=== PATIENT | male | born 1980 | race Native Hawaiian/Other Pacific Islander ===

== ENCOUNTER 2021-01-20 19:07 | Emergency (ER) | payer SELFPAY ==
[2021-01-20] MEDS ORDERED: PROPARACAINE 0.5% OPHTH DROPS 15 ML EACHEYE STA (19:27)
[2021-01-20] MEDS ORDERED: metroNIDAZOLE 250 MG TABLET PO STA (19:35)
[2021-01-20] MEDS ORDERED: DOXYCYCLINE 100 MG TABLET PO STA (19:35)
[2021-01-20] MEDS ORDERED: OFLOXACIN 0.3% OPHTH DROPS LEFTEYE STA (19:35)
--- NOTE | 2021-01-20 19:37 | ED Physician Documentation ---
PD HPI HEENT - Stated complaint Stated Complaint: LT EYE INJ - Chief complaint Chief Complaint: Laceration - History obtained from History obtained from: Patient - Additional information Additional information: 2 hrs Ago he was playing with his dog and she bit him on the face. He has a laceration of the lower lid of the left eye and also a puncture wound. Both he and the dog are up-to-date on immunizations. He is penicillin allergic with reaction of anaphylaxis. Review of Systems Constitutional: denies: Fever, Chills Eyes: reports: Loss of vision, Discharge Ears: denies: Loss of hearing, Ear pain Nose: denies: Rhinorrhea / runny nose, Congestion PD PAST MEDICAL HISTORY - Present Medications Home Medications: Ambulatory Orders Medication Instructions Recorded Confirmed Albuterol Sulf [Ventolin Hfa 1 - 2 puffs INH Q4HR PRN #1 inhaler 01/20/21 Inhaler] Albuterol Sulfate [Proair Hfa 2 puffs IH Q4HR PRN 01/20/21 01/20/21 Inhaler] Ciprofloxacin HCl [Cipro] 500 mg PO BID #10 tablet 01/20/21 Erythromycin Base [Erythromycin 1 appful OP 5XD 7 Days #1 gm 01/20/21 Ophthalmic Ointment] Montelukast [Singulair] 10 mg PO DAILY 01/20/21 01/20/21 Montelukast [Singulair] 10 mg PO QPM #30 tablet 01/20/21 metroNIDAZOLE [Flagyl] 500 mg PO BID #10 tablet 01/20/21 - Allergies Allergies/Adverse Reactions: Allergies Allergy/AdvReac Type Severity Reaction Status Date / Time Penicillins Allergy Anaphylaxis Verified 01/20/21 19:25 PD ED PE NORMAL - Vitals Vital signs reviewed: Yes - General General: Alert and oriented X 3, No acute distress - HEENT HEENT: PERRL, EOMI, Other (There is a puncture wound in the left infraorbital area, then he has a very small but through and through laceration of the lower lid margin right in the midline. There is a small inferior associated corneal abrasion.) - Neck Neck: Supple, no meningeal sign, No bony TTP - Derm Derm: Normal color, Warm and dry - Neuro Neuro: Alert and oriented X 3, Normal speech Results - Vitals Vitals: Vital Signs - 24 hr 01/20/21 01/20/21 19:15 20:04 Temperature 36.8 C 37.0 C Heart Rate 114 H 109 H Respiratory 18 16 Rate Blood Pressure 132/82 H 114/76 O2 Saturation 97 96 Oxygen O2 Source Room air PD MEDICAL DECISION MAKING - ED course ED course: 40-year-old gentleman with a small but through and through lower left eyelid laceration that does cross the margin. I consulted with our local emissions technician who agreed with the antibiotic choice of doxycycline and Flagyl noting that he is penicillin allergic, and they will see him tomorrow. Departure - Departure Disposition: 01 Home, Self Care Clinical Impression: Laceration, Puncture wound Condition: Good Record reviewed to determine appropriate education?: Yes Instructions: ED Wound Puncture General Follow-Up: Alberto Chavarria MD [Provider Admit Priv/Credential] - Prescriptions: Albuterol Sulf [Ventolin Hfa Inhaler] 1 - 2 puffs INH Q4HR PRN #1 inhaler PRN Reason: Shortness Of Air/Wheezing Ciprofloxacin HCl [Cipro] 500 mg PO BID #10 tablet Erythromycin Base [Erythromycin Ophthalmic Ointment] 1 appful OP 5XD 7 Days #1 gm metroNIDAZOLE [Flagyl] 500 mg PO BID #10 tablet Montelukast [Singulair] 10 mg PO QPM #30 tablet Comments: Janet I spoke with Dr. Alberto Chavarria, a local emissions technician. He like to see you in his office tomorrow to arrange for repair of the laceration. Call his office first thing tomorrow. In the meantime we are starting antibiotics. Discharge Date/Time: 01/20/21 20:22
[2021-01-20 20:05] VITALS: BP 114/76
[2021-01-20] MEDS ORDERED: ERYTHROMYCIN OPHTH OINT 1 GM TUBE LEFTEYE STA (20:13)
== END 2021-01-20 20:22 | disposition home or self-care (01) ==
LOC: ED 19:07
DX: S01.152A Open bite of left eyelid and periocular area, initial encounter (principal); S05.02XA Injury of conjunctiva and corneal abrasion without foreign body, left eye, initial encounter; W54.0XXA Bitten by dog, initial encounter; Y93.89 Activity, other specified; Z88.0 Allergy status to penicillin
CPT/HCPCS: 99284; A9270; J3490

== ENCOUNTER 2021-03-04 04:45 | Outpatient (CLI) | payer SELFPAY | END 2021-03-04 04:46 | disposition critical access hospital (66) | LOC: EMS 04:45 | DX: R40.4 Transient alteration of awareness (principal) | CPT/HCPCS: A0425; A0433 ==

== ENCOUNTER 2021-03-04 05:02 | Emergency (ER) | payer SELFPAY ==
[2021-03-04] MEDS ORDERED: SODIUM CHLORIDE 0.9% 1,000 ML IV STA ×2 (05:12→05:54)
[2021-03-04 05:18] LABS: BASOPHILS # (AUTO) 0.2 10^3/uL (0.0-0.1); BASOPHILS % (AUTO) 0.6 %; EOSINOPHILS # (AUTO) 0.4 10^3/uL (0.0-0.7); EOSINOPHILS % (AUTO) 1.8 %; HCT - HEMATOCRIT 49.3 % (42.0-52.0); HGB - HEMOGLOBIN 16.1 g/dL (14.0-18.0); LYMPHOCYTES # (AUTO) 5.6 10^3/uL (1.5-3.5); MEAN CORPUSCULAR HEMOGLOBIN 32.8 pg (27.0-31.0); MEAN CORPUSCULAR HGB CONC 32.7 g/dL (32.0-36.0); MEAN CORPUSCULAR VOLUME 100.4 fL (80.0-94.0); MEAN PLATELET VOLUME 9.4 fL (7.4-11.4); MONOCYTES % (AUTO) 4.3 %; NEUTROPHILS # (AUTO) 14.6 10^3/uL (1.5-6.6); NEUTROPHILS % (AUTO) 62.6 %; PLT - PLATELET COUNT 334 10^3/uL (130-450); RED BLOOD COUNT 4.91 10^6/uL (4.70-6.10); RED CELL DISTRIBUTION WIDTH 13.1 % (12.0-15.0); WHITE BLOOD COUNT 23.4 x10^3/uL (4.8-10.8)
--- NOTE | 2021-03-04 05:20 | ED Physician Documentation ---
History of Present Illness - Stated complaint Stated Complaint: POST CPR - Chief complaint Chief Complaint: Critical Care - History obtained from History obtained from: EMS - Additonal information Additional information: Patient is brought to the emergency department by EMS after being resuscitated in the field. The patient according to bystanders had been doing heroin and methamphetamines, and friends were unsure what happened after that. They last seen him awake approximately 9 minutes before, but just before calling EMS, they found the patient to be unresponsive. When EMS arrived, CPR was in progress by friends. Medics state they arrived at 0457 and found the patient to be in asystole at that time. Patient was given Narcan with no response, followed by several doses of epinephrine. He was intubated and finally went into V. fib instead of asystole. After total of 4 shocks and more Narcan, as well as lidocaine and epi, the patient finally had return of circulation 15 minutes after EMS began to code the patient. They state that the patient was fighting the vent and shaking his head, and so they did give him paralytics in route. It is not known whether the patient took anything besides the meth and heroin. No blood glucose done in route. EKG reported to show STEMI after resuscitation. Review of Systems Unable to obtain: Unresponsive, Intubated PD PAST MEDICAL HISTORY - Past Medical History Respiratory: Asthma - Past Surgical History Past Surgical History: No - Present Medications Home Medications: Ambulatory Orders Medication Instructions Recorded Confirmed Albuterol Sulf [Ventolin Hfa 1 - 2 puffs INH Q4HR PRN #1 inhaler 01/20/21 Inhaler] Albuterol Sulfate [Proair Hfa 2 puffs IH Q4HR PRN 01/20/21 01/20/21 Inhaler] Ciprofloxacin HCl [Cipro] 500 mg PO BID #10 tablet 01/20/21 Erythromycin Base [Erythromycin 1 appful OP 5XD 7 Days #1 gm 01/20/21 Ophthalmic Ointment] Montelukast [Singulair] 10 mg PO DAILY 01/20/21 01/20/21 Montelukast [Singulair] 10 mg PO QPM #30 tablet 01/20/21 metroNIDAZOLE [Flagyl] 500 mg PO BID #10 tablet 01/20/21 - Allergies Allergies/Adverse Reactions: Allergies Allergy/AdvReac Type Severity Reaction Status Date / Time Penicillins Allergy Anaphylaxis Verified 01/20/21 19:25 - Social History Does the pt smoke?: Yes Smoking Status: Current every day smoker Does the pt drink ETOH?: Yes Does the pt have substance abuse?: Yes - Immunizations Immunizations are current?: Yes - POLST Patient has POLST: No PD ED PE NORMAL - Vitals Vital signs reviewed: Yes - General General: Other (Intubated, no spontaneous respiratory effort) - HEENT HEENT: Atraumatic, Moist mucous membranes - Neck Neck: Supple, no meningeal sign - Cardiac Cardiac: RRR, No murmur, Strong equal pulses - Respiratory Respiratory: Clear bilaterally, Other (Intubated, no spontaneous respiratory effort) - Abdomen Abdomen: Soft, Non distended - Derm Derm: Normal color, Other (Cool, dry) - Extremities Extremities: No deformity, No edema - Psych Psych: Normal mood, Normal affect Results - Vitals Vitals: Vital Signs - 24 hr 03/04/21 03/04/21 03/04/21 05:03 05:16 05:26 Temperature 36.1 C L Heart Rate 80 76 71 Respiratory 18 14 18 Rate Blood Pressure 211/195 H 105/87 H 105/87 H O2 Saturation 100 97 100 03/04/21 03/04/21 03/04/21 05:34 05:35 05:45 Temperature 34.2 C L 34.8 C L Heart Rate 61 82 71 Respiratory 18 19 Rate Blood Pressure 120/97 H 133/112 H O2 Saturation 100 100 Oxygen O2 Source Mechanical ventilator - EKG (time done) 0521 Rate: Rate (enter#) (61) Rhythm: NSR Patterson: Normal Intervals: Normal FL QRS: Normal Ischemia: ST elevation c/w repol Compare to prior EKG: Old EKG unavailable Computer interpretation: Agree with computer 0552 Rate: Rate (enter#) (114) Rhythm: Sinus tachycardia Patterson: Normal Intervals: Normal FL, RBBB QRS: No: Normal (wide) Ischemia: ST elevation c/w ischemia (interior and anterolateral leads), T wave inversion (V2-3) Compare to prior EKG: Changed from prior EKG (EKG at 05:21: Ischemic changes now involve anterolateral leads, also; QRS complexes now wide/new RBBB.) Computer interpretation: Agree with computer - Labs Labs: Laboratory Tests 03/04/21 03/04/21 03/04/21 05:10 05:10 05:10 WBC 23.4 H RBC 4.91 Hgb 16.1 Hct 49.3 MCV 100.4 H MCH 32.8 H MCHC 32.7 RDW 13.1 Plt Count 334 MPV 9.4 Neut # (Auto) 14.6 H Lymph # (Auto) 5.6 H [place] # (Auto) 1.0 Eos # (Auto) 0.4 Baso # (Auto) 0.2 H Absolute Nucleated RBC 0.00 Nucleated RBC % 0.0 WBC Morphology NORMAL APPEARANCE Platelet Estimate NORMAL (130-450,000) Platelet Morphology NORMAL APPEARANCE RBC Morph Micro Appear NORMAL APPEARANCE Bld Gas Analysis Time Sample Site ABG pH ABG pCO2 ABG pO2 ABG HCO3 ABG Total CO2 ABG O2 Saturation ABG Base Excess Mohit Test Respiration Rate O2 Delivery Device Vent Mode FiO2 Tidal Volume PEEP Sodium 137 Potassium 3.7 Chloride 98 L Carbon Dioxide 23 Anion Gap 16.0 H BUN 22 H Creatinine 1.2 Estimated GFR (MDRD) 67 L Glucose 248 H Calcium 8.7 Total Bilirubin 0.8 AST 257 H ALT 212 H Alkaline Phosphatase 75 Troponin I High Sens 1547.3 H* Total Protein 7.3 Albumin 4.1 Globulin 3.2 Albumin/Globulin Ratio 1.3 Lipase 26 Urine Color Urine Clarity Urine pH Ur Specific [place] Urine Protein Urine Glucose (UA) Urine Ketones Urine Occult Blood Urine Nitrite Urine Bilirubin Urine Urobilinogen Ur Leukocyte Esterase Urine RBC Urine WBC Ur Squamous Epith Cells Urine Bacteria Urine Sperm Ur Microscopic Review Urine Culture Comments Nasal Adenovirus (PCR) Nasal B. parapertussis DNA (PCR) Nasal Coronavir 229E PCR Nasal Coronavir HKU1 PCR Nasal Coronavir NL63 PCR Nasal Coronavir OC43 PCR Nasal Enterovir/Rhinovir PCR Nasal Influenza B PCR Nasal Influenza A PCR Nasal Parainfluen 1 PCR Nasal Parainfluen 2 PCR Nasal Parainfluen 3 PCR Nasal Parainfluen 4 PCR Nasal RSV (PCR) Nasal B.pertussis DNA PCR Nasal C.pneumoniae (PCR) [place] Human Metapneumo PCR Nasal M.pneumoniae (PCR) Nasal SARS-CoV-2 (PCR) Urine Opiates Screen Ur Oxycodone Screen Urine Methadone Screen Ur Propoxyphene Screen Ur Barbiturates Screen Ur Tricyclics Screen Ur Phencyclidine Scrn Ur Amphetamine Screen U Methamphetamines Scrn U Benzodiazepines Scrn Urine Cocaine Screen U Cannabinoids Screen 03/04/21 03/04/2103/04/21 05:25 05:54 06:10 WBC RBC Hgb Hct MCV MCH MCHC RDW Plt Count MPV Neut # (Auto) Lymph # (Auto) [place] # (Auto) Eos # (Auto) Baso # (Auto) Absolute Nucleated RBC Nucleated RBC % WBC Morphology Platelet Estimate Platelet Morphology RBC Morph Micro Appear Bld Gas Analysis Time 0559 Sample Site RIGHT RADIAL ABG pH 7.25 L ABG pCO2 48 H ABG pO2 65 L ABG HCO3 20.5 L ABG Total CO2 22.0 ABG O2 Saturation 91 L ABG Base Excess -7.1 L Mohit Test POSITIVE Respiration Rate 18 O2 Delivery Device VENTILATOR Vent Mode ASSIST/CONTROL FiO2 100.00 Tidal Volume 600 PEEP 5 Sodium Potassium Chloride Carbon Dioxide Anion Gap BUN Creatinine Estimated GFR (MDRD) Glucose Calcium Total Bilirubin AST ALT Alkaline Phosphatase Troponin I High Sens Total Protein Albumin Globulin Albumin/Globulin Ratio Lipase Urine Color YELLOW Urine Clarity SL. CLOUDY Urine pH 6.5 Ur Specific [place] >=1.030 H Urine Protein >=300 H Urine Glucose (UA) 250 H Urine Ketones TRACE Urine Occult Blood LARGE H Urine Nitrite NEGATIVE Urine Bilirubin NEGATIVE Urine Urobilinogen 1 (NORMAL) Ur Leukocyte Esterase NEGATIVE Urine RBC 6-10 H Urine WBC 0-3 Ur Squamous Epith Cells NONE SEEN Urine Bacteria Rare Urine Sperm PRESENT Ur Microscopic Review INDICATED Urine Culture Comments NOT INDICATED Nasal Adenovirus (PCR) NOT DETECTED Nasal B. parapertussis DNA (PCR) NOT DETECTED Nasal Coronavir 229E PCR NOT DETECTED Nasal Coronavir HKU1 PCR NOT DETECTED Nasal Coronavir NL63 PCR NOT DETECTED Nasal Coronavir OC43 PCR NOT DETECTED Nasal Enterovir/Rhinovir PCR NOT DETECTED Nasal Influenza B PCR NOT DETECTED Nasal Influenza A PCR NOT DETECTED Nasal Parainfluen 1 PCR NOT DETECTED Nasal Parainfluen 2 PCR NOT DETECTED Nasal Parainfluen 3 PCR NOT DETECTED Nasal Parainfluen 4 PCR NOT DETECTED Nasal RSV (PCR) NOT DETECTED Nasal B.pertussis DNA PCR NOT DETECTED Nasal C.pneumoniae (PCR) NOT DETECTED [place] Human Metapneumo PCR NOT DETECTED Nasal M.pneumoniae (PCR) NOT DETECTED Nasal SARS-CoV-2 (PCR) NOT DETECTED Urine Opiates Screen NEGATIVE Ur Oxycodone Screen NEGATIVE Urine Methadone Screen NEGATIVE Ur Propoxyphene Screen NEGATIVE Ur Barbiturates Screen NEGATIVE Ur Tricyclics Screen NEGATIVE Ur Phencyclidine Scrn NEGATIVE Ur Amphetamine Screen POSITIVE H U Methamphetamines Scrn POSITIVE H U Benzodiazepines Scrn NEGATIVE Urine Cocaine Screen NEGATIVE U Cannabinoids Screen POSITIVE H - Rads (name of study) CXR Radiology: EMP read indepedently (ETT in trachea, about 4 cm above marjorie; NGT in good placement in stomach.) Procedures - Central Line Central Line Preparation: Unable to obtain consent, Sterile prep and drape Central line location: Right Subclavian Central line type: Triple lumen Central line aftercare: Chlorhexidine disc placed, Secured, No complications, Pt tolerated well - Cardioversion Attempt 4 Indication: Tachyarrhythmia (pulseless V-tach), Clinically unstable Risks, benefits, alternatives explained to: N/A pt unstable Prep: IV, O2, quality assurance monitor final, Pulse ox, Airway equip CS via: Pads, AP approach Sync: Biphasic, 200j Post cardioversion rhythm: NSR Performed by: ED Attempt 3 Indication: Tachyarrhythmia (pulseless V-tach), Clinically unstable Risks, benefits, alternatives explained to: N/A pt unstable Prep: IV, O2, quality assurance monitor final, Pulse ox CS via: Pads, AP approach Sync: Biphasic, 200j Post cardioversion rhythm: NSR Performed by: ED Attempt 2 Indication: Tachyarrhythmia (pulseless V-tach), Clinically unstable Risks, benefits, alternatives explained to: N/A pt unstable Prep: IV, quality assurance monitor final, Pulse ox, Airway equip CS via: Pads, AP approach Sync: Biphasic, 200j Post cardioversion rhythm: NSR Performed by: ED Attempt 1 Indication: Tachyarrhythmia (Pulseless V-tach), Clinically unstable Risks, benefits, alternatives explained to: N/A pt unstable Prep: IV, quality assurance monitor final, Pulse ox, Airway equip CS via: Pads, AP approach Sync: Biphasic, 200j Post cardioversion rhythm: NSR Performed by: ED MD ARECHIGA MEDICAL DECISION MAKING - ED course Complexity details: reviewed old records ED course: Laboratory studies ordered, as well as EKG. Fingerstick glucose did not show hypoglycemia. Based on equal breath sounds and 100% Oxygen saturation with bagging, I felt the tube was likely in good placement. Chest x-ray confirmed ETT position approximately 4 cm above majrorie. Tube was advanced 2 cm. Due to the patient havingInitial ventilator settings were adjusted and elevated CO2 81. Respiratory rate was therefore raised from 14 to 18 to combat this. NG tube was placed, as was Dao. Patient arrived with an EJ line as well as an IO. A second peripheral line was placed by nursing staff upon patient's arrival. The patient Arrived on a lidocaine drip. EKG showed inferior ST elevation and a narrow complex sinus rhythm. Patient's troponin was over 1000. I spoke with Dr. Gonzalez, one of the computer graphics illustrator at [facility], and he stated that although it is difficult to tell whether the patient has a primary STEMI or a STEMI secondary to arrest, he still felt that emergent catheterization would be indicated. Around this time, the patient went into pulseless V. tach on the monitor. Shock was administered, CPR was performed and patient did have return to a sinus rhythm with a pulse. The patient continue to maintain a normal blood pressure as long as he was in a perfusing rhythm, but did have repeated episodes of pulseless V. tach which were very responsive to individual shocks. The patient was given 300 mg of amiodarone, as well as another dose of lidocaine. He did have some respiratory effort as the paralytics wore off, and was resisting the vent to some degree. However, patient was not conscious. Etomidate was ordered, and patient was given a dose of rocuronium, as well. After several episodes of pulseless V. tach, one approximately every 5 to 10 minutes, each resolving with this shock and round of CPR,the patient did finally seem to Stabilize as far as his rhythm, though he was noted to have developed a wider complex sinus rhythm on repeat EKG. He also received 1-1/2 L of 0.9 normal saline while in the emergency department. Patient was given a dose of fentanyl, which did drop his pressure a little, but provided further sedation, as well as a rectal dose of aspirin. The patient's peripheral line had infiltrated, and IO had been removed, leaving only the EJ line. As such, given the critical nature of the patient's condition and the need for multiple medications and infusions, I did place a right subclavian triple-lumen catheter. Due to the patient's need for repeated resuscitative efforts, as well as the need for emergent transfer, chest x-ray was not able to be performed prior to transfer. I had been able to speak with Dr. Grimaldo in the emergency department at [facility] by this point, and she had accepted the patient in transfer via STEMI protocol. Now that the patient was stable enough for transfer, we were able to send him via ground, as weather precluded flying. - Critical Care Time(min): 90 Comments: Critical care time was necessary due to Imminent decline leading to , secondary to respiratory failure, cardiac arrest of, ST elevation [place], and multiple subsequent episodes of pulseless V. tach. Time Includes: Direct patient care, Review records, Reassess patient, Document care, Coordinate care, Medical consult, See progress note Data interpretation: Labs, Pulse ox, ABG, CXR, Prior EKG, Cardiac output, See progress note Procedures included in critical care time: Ventilator mgmt Procedures excluded from critical care time: Central IV, EKG, CPR, See progress note Departure - Departure Disposition: 02 Transfer Acute Care Hosp Clinical Impression: Cardiac arrest, Methamphetamine abuse, Ventricular tachycardia STEMI (ST elevation myocardial infarction) Qualifiers: Involved coronary artery: unspecified coronary artery Qualified Code(s): I21.3 - ST elevation (STEMI) myocardial infarction of unspecified site Heroin overdose Qualifiers: Encounter type: initial encounter Injury intent: undetermined intent Qualified Code(s): T40.1X4A - Poisoning by heroin, undetermined, initial encounter Condition: Critical
[2021-03-04 05:32] LABS: ALBUMIN 4.1 g/dL (3.2-5.5); ALBUMIN/GLOBULIN RATIO 1.3 (1.0-2.2); BILIRUBIN,TOTAL 0.8 mg/dL (0.2-1.0); CALCIUM 8.7 mg/dL (8.5-10.3); CREATININE 1.2 mg/dL (0.6-1.2); POTASSIUM 3.7 mmol/L (3.5-5.0); TOTAL PROTEIN 7.3 g/dL (6.7-8.2)
[2021-03-04 05:33] LABS: PLATELET ESTIMATE, MANUAL NORMAL (130-450,000) (NORMAL); PLATELET MORPHOLOGY NORMAL APPEARANCE (NORMAL); RBC MORPHOLOGY (MULTIPLE) NORMAL APPEARANCE (NORMAL); WBC MORPHOLOGY (MULTIPLE) NORMAL APPEARANCE (NORMAL)
[2021-03-04 05:37] LABS: MUDS CUTOFF CONCENTRATIONS CUTOFF CONC BELOW:
[2021-03-04 05:38] LABS: BILIRUBIN,URINE NEGATIVE (NEGATIVE); GLUCOSE, URINE (UA) 250 mg/dL (NEGATIVE); KETONES,URINE (UA) TRACE mg/dL (NEGATIVE); LEUKOCYTE ESTERASE, URINE NEGATIVE (NEGATIVE); NITRITE,URINE NEGATIVE (NEGATIVE); OCCULT BLOOD,URINE LARGE (NEGATIVE); PH,URINE 6.5 PH (5.0-7.5); PROTEIN,URINE >=300 mg/dL (NEGATIVE); UROBILINOGEN,URINE 1 (NORMAL) E.U./dL (NORMAL)
[2021-03-04 05:39] LABS: CLARITY,URINE SL. CLOUDY (CLEAR)
[2021-03-04 05:45] LABS: BACTERIA,URINE Rare /HPF (None Seen); SPERM,URINE PRESENT; SQUAMOUS EPITHELIAL CELL,UR NONE SEEN (<= Few); WBC,URINE 0-3 /HPF (0-3)
[2021-03-04 05:49] LABS: AMPHETAMINE SCREEN,URINE POSITIVE (NEGATIVE); BARBITURATE SCREEN,UR NEGATIVE (NEGATIVE); BENZODIAZEPINES SCREEN, URINE NEGATIVE (NEGATIVE); COCAINE SCREEN URINE NEGATIVE (NEGATIVE); METHADONE SCREEN, URINE NEGATIVE (NEGATIVE); METHAMPHETAMINES SCREEN, URINE POSITIVE (NEGATIVE); OPIATE SCREEN, URINE NEGATIVE (NEGATIVE); OXYCODONE SCREEN, URINE NEGATIVE (NEGATIVE); PROPOXYPHENE SCREEN, URINE NEGATIVE (NEGATIVE); THC CANNABINOID SCREEN, URINE POSITIVE (NEGATIVE); TRICYCLIC ANTIDEPRESSANT,URINE NEGATIVE (NEGATIVE)
[2021-03-04] MEDS ORDERED: ETOMIDATE 40 MG/20 ML VIAL IVP STA (05:53)
[2021-03-04] MEDS ORDERED: LIDOCAINE 2% ABBOJECT 100 MG/5 ML SYRINGE IVP STA (05:53)
[2021-03-04 06:00] LABS: ABG BASE EXCESS -7.1 mmol/L (-2.0-3.0); ABG HCO3 20.5 mmol/L (22.0-26.0); ABG MODE OF VENTILATION ASSIST/CONTROL; ABG OXYGEN SATURATION 91 % (94-98); ABG PCO2 48 mmHg (34-45); ABG PH 7.25 (7.35-7.45); ABG PO2 65 mmHg (80-100); ALLEN TEST POSITIVE
[2021-03-04 06:01] LABS: ABG RESPIRATORY RATE 18 b/min
[2021-03-04] MEDS ORDERED: LIDOCAINE 2000 MG/500 ML 2,000 MG/500 ML BAG IV STA (06:04)
[2021-03-04] MEDS ORDERED: ROCURONIUM 50 MG/5 ML VIAL IVP STA (06:05)
[2021-03-04] MEDS ORDERED: AMIODARONE 150 MG/3 ML VIAL IVP STA (06:11)
[2021-03-04] MEDS ORDERED: ASPIRIN 300 MG SUPP PR STA (06:12)
[2021-03-04] MEDS ORDERED: ASPIRIN 300 MG SUPP PR ONE (06:19)
[2021-03-04] MEDS ORDERED: fentaNYL 100 MCG/2 ML VIAL ONE (06:19)
[2021-03-04 07:03] LABS: B. PARAPERTUSSIS- RESP PCR PAN NOT DETECTED; B. PERTUSSIS- RESP PCR PANEL NOT DETECTED; C. PNEUMONIAE- RESP PCR PANEL NOT DETECTED; CORONAVIRUS 229E-RESP PCR NOT DETECTED; CORONAVIRUS HKU1-RESP PCR NOT DETECTED; CORONAVIRUS NL63-RESP PCR NOT DETECTED; CORONAVIRUS OC43-RESP PCR NOT DETECTED; HUMAN METAPNEUMOVIRUS NOT DETECTED; INFLUENZA A- RESP PCR PANEL NOT DETECTED; INFLUENZA B - RESP PCR PANEL NOT DETECTED; M. PNEUMONIAE- RESP PCR PANEL NOT DETECTED; PARAINFLUENZA VIRUS 1 NOT DETECTED; PARAINFLUENZA VIRUS 2 NOT DETECTED; PARAINFLUENZA VIRUS 3 NOT DETECTED; PARAINFLUENZA VIRUS 4 NOT DETECTED; RHINOVIRUS/ENTEROVIRUS NOT DETECTED; RSV- RESP PCR PANEL NOT DETECTED; SARS-CoV-2 -RESP PCR PANEL NOT DETECTED
[2021-03-04] MEDS ORDERED: fentaNYL 100 MCG/2 ML VIAL IVP STA (07:33)
[2021-03-04 08:04] VITALS: BP 94/74
--- NOTE | 2021-03-04 10:01 | XRAY Report ---
PROCEDURE: Chest 1 View X-Ray INDICATIONS: Chest Pain TECHNIQUE: One view of the chest was acquired. COMPARISON: None FINDINGS: Surgical changes and devices: Endotracheal tube tip is approximately 1.5 cm below the medial clavicul ar head axial level, and approximately 3 cm above the marjorie. Esophagogastric tube tip extends below the imaging margin with side port in the gastric body.. Lungs and pleura: No pleural effusions or pneumothorax. Lungs are abnormal with upper lung alveolar infiltration bilaterally, and also mid lung and lower lung alveolar infiltration on the left.. Mediastinum: Mediastinal contours appear normal. Heart size is normal. Bones and chest wall: No suspicious bony lesions. Overlying soft tissues appear unremarkable. IMPRESSION: Patchy bilateral pneumonia pattern, endotracheal and esophagogastric tubes in normal position. Reviewed by: Jaron Jordan MD on 03/04/2021 9:59 AM PDT Approved by: Jaron Jordan MD on 03/04/2021 9:59 AM PDT Station ID: [id number]
== END 2021-03-04 07:03 | disposition short-term general hospital (02) ==
LOC: EDUNIT# → ED 05:02
DX: I21.3 ST elevation (STEMI) myocardial infarction of unspecified site (principal); I46.9 Cardiac arrest, cause unspecified; T40.1X1A Poisoning by heroin, accidental (unintentional), initial encounter; J96.90 Respiratory failure, unspecified, unspecified whether with hypoxia or hypercapnia; I47.2 Ventricular tachycardia; I45.10 Unspecified right bundle-branch block; F15.10 Other stimulant abuse, uncomplicated; Z20.822 Contact with and (suspected) exposure to COVID-19; F17.200 Nicotine dependence, unspecified, uncomplicated
CPT/HCPCS: 0202U; 36415; 36556; 36600; 51702; 71045; 80053; 80306; 81001; 82803; 83690; 84484; 85025; 92950; 93005; 96374; 96375; 99291; 99292; A9270; J0282; 81003; 87086; 94770

== ENCOUNTER 2021-03-04 07:05 | Outpatient (CLI) | payer SELFPAY | END 2021-03-04 07:06 | disposition short-term general hospital (02) | LOC: EMS 07:05 | PROVIDERS: ATTEND Emergency Medicine | DX: I21.3 ST elevation (STEMI) myocardial infarction of unspecified site (principal) | CPT/HCPCS: A0425; A0428 ==